=== PATIENT | male | born 1950 | race Asian ===

== ENCOUNTER 2019-11-26 13:48 | Outpatient (CLI) | payer BC ==
--- NOTE | 2019-11-26 19:57 | RAD ---
CHEST: 11/26/19 AP and lateral views are presented with no prior films available for comparison. The lungs are hyper expanded which may suggest an element of COPD. There are some chronic fibrotic changes seen throughou t this patient's lungs. Changes in the right lung apex are a little more prominent than elsewhere and could relate to old disease here. There were no lobar infiltrates or effusions. The heart size is no rmal. Faint calcification is present in the aortic arch. IMPRESSION: Hyperexpanded lungs with mild chronic fibrotic changes throughout. The changes are somewhat asymmetri c. Referral to a practice coordinator and/or a CT of the chest could be helpful. POS: HOME
== END 2019-11-26 13:49 | disposition home or self-care (01) ==
LOC: BURRAD 13:48
PROVIDERS: ATTEND Physician Assistant
DX: J18.9 Pneumonia, unspecified organism (principal); J98.4 Other disorders of lung
CPT/HCPCS: 71046